=== PATIENT | female | born 1995 | race Hispanic/Latino ===

== ENCOUNTER 2017-01-10 20:13 | Emergency (ER) | payer SELFPAY ==
[~2017-01-10] VITALS: Ht 149.9 cm; Wt 63.6 kg
[2017-01-10 20:28] VITALS: BP 128/79; PULSE 130; RESP 22; O2SAT 99
--- NOTE | 2017-01-10 20:34 | ED.REPORT ---
HPI-General Illness Date of Service Jan 10, 2017 ED Provider: Dr. Louis Pt is a healthy 21 year old female presenting to the ED complaining of an intermittent fever onset 5 days ago. Associated symptoms include dysuria, urinary frequency, cough, and hives onset 4 days ago progressively worsening. Denies itching, sore throat, SOB, wheezing, nausea or vomiting. She took penicillin 5 days ago which she had at home already. She states that she has taken penicillin in the past without any reaction. Denies any hx of UTI, recent sick contacts, or recent travel. Nursing Notes Stated Complaint: FEVER,HIVES ALL OVER BODY,COUGH Chief Complaint: General Complaint Nursing Notes Reviewed: Yes Allergies: Coded Allergies: No Known Allergies (Unverified Allergy, Unknown, 01/10/17) Scheduled Nitrofurantoin Monohyd/M-Cryst (MacroBid) 100 Mg Capsule 100 MG PO BID Prednisone (PredniSONE) 20 Mg Tablet 40 MG PO DAILY General Time Seen by MD: 20:34 Chief Complaint Fever Hx Obtained From: Patient Arrived By: Walk-in Onset Occurred: 5 days ago Symptom Duration: Intermittent Severity: Current: No pain currently Severity: Maximum: No pain Recent Healthcare: No recent doctor visit, No recent hospitalization Similar Sx Previous: No Past Medical History Past Medical History healthy Past Surgical History denies Smoking History Unknown if Ever Smoker Ambulatory Status Independent Review of Systems Full Review of Systems Constitutional: Reports: Fever Ears / Nose / Throat: Denies: Sore throat Respiratory: Reports: Non-productive cough, Denies: Shortness of breath, Wheezing GI: Denies: Nausea, Vomiting Female: Reports: Dysuria, Urinary frequency Skin: Reports Rash, Denies Itching Complete sys rev & neg: except as marked. Physical Exam Vital Signs Vital Signs Date Time Temp Pulse Resp B/P Pulse Ox O2 Delivery O2 Flow Rate FiO2 01/10/17 23:43 37.0 92 25 106/58 99 Room Air 01/10/17 22:00 37.3 99 22 115/62 100 Room Air 01/10/17 20:28 39.5 130 22 128/79 99 Room Air Initial VS: Reviewed General/Constitutional: Well-developed, Well-nourished Head / Eyes: Atraumatic, Normocephalic, PERRL ENT: Mucous membranes moist, Conjunctiva normal, No scleral icterus Respiratory: Breath sounds normal, Clear to auscultation, No respiratory distress Abdomen / GI: Soft, Non-tender, No guarding, No rebound, No distention Back: No CVA tenderness Extremities: Vascular intact, Neuro intact, No swelling, No tenderness Neurologic: Alert, Oriented, Nonfocal Psychiatric: Mood/affect normal, Behavior normal, Normal thought content Cardiovascular: Regular rhythm, Heart sounds NL Heart Rate / Rhythm: Positive: Tachycardia Skin: Warm, Dry, Intact Maculopapular rash covering her torso Interpretation & Diagnostics Lab Results Interpretation Result Diagram: 01/10/17211901/10/172119 Test 01/10/17 20:44 01/10/17 20:45 01/10/17 21:20 01/10/17 21:57 Hold Urine Received (Received) Urine Color Yellow (YELLOW) Urine Appearance Hazy (CLEAR,HAZY) Urine pH 6.0 (5.0-8.0) Urine Specific [place] 1.020 (1.003-1.035) Urine Protein 30mg/dL (NEG,TRACE) Urine Glucose (UA) Negativemg/dL (NEGATIVE) Urine Ketones Negativemg/dL (NEGATIVE) Urine Occult Blood Large (NEGATIVE) Urine Nitrite Negative (NEGATIVE) Urine Bilirubin Negative (NEGATIVE) Urine Urobilinogen 1.0mg/dL (NORMAL) Urine Leukocyte Esterase Moderate (NEGATIVE) Urine RBC 3-10/hpf (0-2) Urine WBC 6-10/hpf (0-5) Urine Epithelial Cells Few/hpf (NONE-MOD) Urine Crystals None seen (NONE SEEN) Urine Bacteria Moderate/hpf (NONE-FEW) Urine Hyaline Casts None/lpf (NONE) Urine Granular Casts None seen (NONE SEEN) Urine Waxy Casts None seen (NONE SEEN) Urine Red Blood Cell Casts None seen (NONE SEEN) Urine White Blood Cell Casts None seen (NONE SEEN) Urine Mucus None seen (None Seen) Urine Trichomonas None seen (NONE SEEN) Urine Yeast None (NONE SEEN) Urinalysis Comment None Urine Culture Reflexed Indicated White Blood Count 9.2th/mm3 (3.8-10.1) Red Blood Count 4.66mil/mm3 (3.90-5.20) Hemoglobin 13.5g/dL (12.0-15.6) Hematocrit 38.5% (35.0-46.0) Mean Corpuscular Volume 82.6fL (81-100) Mean Corpuscular Hemoglobin 29.0pg (27.0-35.0) Mean Corpuscular Hemoglobin Concent 35.1% (32.0-37.0) Red Cell Distribution Width 13.1% (12.3-15.4) Platelet Count 147bil/L (150-400) Neutrophils (%) (Auto) 82.2% (40-74) Lymphocytes (%) (Auto) 7.9% (14-46) Monocytes (%) (Auto) 9.6% (4-12) Eosinophils (%) (Auto) 0% (0-5) Basophils (%) (Auto) 0.1% (0-3) Sodium Level 131mEq/L (134-144) Potassium Level 3.9mEq/L (3.5-5.2) Chloride Level 97mEq/L (97-108) Carbon Dioxide Level 19mmol/L (18-29) Blood Urea Nitrogen 9mg/dL (6-20) Creatinine 0.48mg/dL (0.57-1.00) Estimat Glomerular Filtration Rate 239mL/min (>59) Glucose Level 107mg/dL (60-99) Calcium Level 8.5mg/dL (8.5-10.1) Magnesium Level 2.2mg/dL (1.6-2.6) Total Bilirubin 0.5mg/dL (0.0-1.2) Aspartate Amino Transf (AST/SGOT) 26U/L (0-50) Alanine Aminotransferase (ALT/SGPT) 17U/L (0-32) Alkaline Phosphatase 73U/L (25-150) Total Protein 8.0g/dL (6.4-8.4) Albumin 3.8g/dL (3.4-5.0) Hold Marinelli Top Tube Received (Received) X-Ray Chest Interpretation Chest Xray Interpretation: IMPRESSION: No acute cardiopulmonary disease. Dictated by: Chanel Mccormack M.D. on 01/10/2017 at 21:36 View: Portable, 1 view Interpretation / Wet Read by: Interpret - Radiologist Re-Eval/Medical Decision Med Decision/Clinical Course Nontoxic-appearing 21-year-old female who presents with criteria for sepsis ( fever and tachycardia) as well as a rash consistent with hives after taking penicillin which she had laying around her house for her UTI symptoms. She noted a cough as well however her chest x-ray was unremarkable. After 1 L of fluids and ibuprofen her tachycardia and fever resolved. She has no white count elevation. She was treated with ceftriaxone 1 g in the emergency department and discharged home with Macrobid twice a day for 5 days. Given her rash with slow resolution on Benadryl, I prescribed prednisone to take for 5 days. She will follow up with PCP within the week. She is feeling well and is in agreement with the plan for discharge. No evidence of pyelonephritis on exam Time of Eval: 22:06 Patient Status: Condition improved Re-Evaluation/Progress Note: Pt reports that she is feeling better but her hives are getting worse. She had Benadryl 5 minutes ago. Time of Eval: 22:50 Patient Status: Condition improved Re-Evaluation/Progress Note: The rash is improved. Discussed plan for discharge. Pt understands and agrees. Counseled Regarding: Diagnosis, Lab results, Need for follow-up, When/why to return to ED Discharge & Departure Primary Impression: UTI (urinary tract infection) Urinary tract infection type: site unspecified Hematuria presence: without hematuria Qualified Code: N39.0 - Urinary tract infection, site not specified Additional Impressions: Sepsis Sepsis type: sepsis due to unspecified organism Qualified Code: A41.9 - Sepsis, unspecified organism Hives Allergic reaction Encounter type: initial encounter Qualified Code: T78.40XA - Allergy, unspecified, initial encounter Disposition: Home Discharge Condition All VS Reviewed: Yes Condition: Improved Patient Instructions: Urinary Tract Infection in Women (ED) Additional Instructions: Thank you for entrusting us with your care today. You have a urinary tract infection. This is likely the cause for your fever. The antibiotics that you took at home for your UTI is likely the cause of your rash. This should improve with prednisone. Take Macrobid and Prednisone for 5 days. Take Benadryl as needed for your rash as well. Take Ibuprofen as needed for fever. Follow up [facility] later this week or early next week. Drink plenty of fluids. Return to the ER if you develop any new or worsening symptoms such as a worsening fever or back pain. Referrals: NOPCP (PCP) [facility] Scribe Attestation Portions of this note were transcribed by Nadine Torres. IDr Louis personally performed the history, physical exam and medical decision-making; I reviewed and confirmed the accuracy of the information in the transcribed note. Signed by: Gaetano Bauer, 01/10/2017. copies to: [facility] Waqas Louis DO Jan 10, 2017 20:34 NADINE TORRES Jan 10, 2017 21:05
[2017-01-10] MEDS ORDERED: 0.9% Sodium Chloride 1,000 ML IV ONE (20:53)
[2017-01-10] MEDS ORDERED: cefTRIAXone Inj 1,000 MG in Dextrose 5% Minibag Plus 50 ML IV ONE (20:55)
[2017-01-10 20:59] LABS: APPEARANCE,URINE HAZY (CLEAR,HAZY); COLOR,URINE YELLOW (YELLOW)
[2017-01-10 21:01] LABS: OCCULT BLOOD,URINE LARGE (NEGATIVE)
[2017-01-10] MEDS ORDERED: diphenhydrAMINE 50 mg Capsule PO ONE (21:05)
[2017-01-10] MEDS ORDERED: diphenhydrAMINE 25 mg Capsule PO ONE (21:20)
[2017-01-10 21:23] LABS: BASOPHILS % (AUTO) 0.1 % (0-3); EOSINOPHILS % (AUTO) 0 % (0-5); MONOCYTES % (AUTO) 9.6 % (4-12); Mean Corpuscular Volume 82.6 fL (81-100); NEUTROPHILS % (AUTO) 82.2 % (40-74); Platelet Count 147 bil/L (150-400)
--- NOTE | 2017-01-10 21:38 | DRSVH ---
PROCEDURE: X-RAY CHEST, TWO VIEWS ([id number]) INDICATIONS: COUGH, SOB TECHNIQUE: 2 views of the chest were acquired. COMPARISON: None. FINDINGS: Surgical changes and devices: None. Lungs and pleura: No pleural effusions or pneumothorax. Lungs are clear. Mediastinum: Mediastinal contours are normal. Heart size is normal. Bones and chest wall: No suspicious bony abnormalities. Soft tissues appear unremarkable. IMPRESSION: No acute cardiopulmonary disease. Dictated by: Chanel Mccormack M.D. on 01/10/2017 at 21:36 Approved by: Chanel Mccormack M.D. on 01/10/2017 at 21:36
[2017-01-10 21:53] LABS: Magnesium 2.2 mg/dL (1.6-2.6)
[2017-01-10 22:00] VITALS: BP 115/62; PULSE 99; RESP 22; O2SAT 100
[2017-01-10] MEDS ORDERED: PRE20 PO (22:25)
[2017-01-10] MEDS ORDERED: predniSONE 20 mg Tablet PO ONE (22:25)
[2017-01-10] MEDS ORDERED: NITR100 PO (22:25)
[2017-01-10 23:43] VITALS: BP 106/58; PULSE 92; RESP 25; O2SAT 99
== END 2017-01-10 23:44 | disposition home or self-care (01) ==
LOC: SED 20:13
DX: N39.0 Urinary tract infection, site not specified (principal); A41.9 Sepsis, unspecified organism; L50.0 Allergic urticaria; R05 Cough; T36.0X5A Adverse effect of penicillins, initial encounter; Y93.89 Activity, other specified; Y92.89 Other specified places as the place of occurrence of the external cause; Y99.8 Other external cause status
CPT/HCPCS: 36415; 71020; 80053; 81000; 81025; 83735; 85025; 87040; 87086; 87088; 96365; 96366; 99285; J0696; J7030